=== PATIENT | female | born 1965 | race American Indian/Alaskan Native ===

== ENCOUNTER 2018-12-24 06:52 | Day surgery (SDC) | payer BC ==
[2018-12-24] MEDS: NACL 0.9% 500 ML 500 ML IV SCH ×2 (08:52→09:55)
[2018-12-24] MEDS ORDERED: HEPARIN 10,000 UNITS/10 ML ONE (08:56)
[2018-12-24] MEDS ORDERED: XYLOCAINE 2% INFILTRATI ONE (08:56)
[2018-12-24] MEDS ORDERED: CALAN ONE (08:56)
[2018-12-24] MEDS ORDERED: HEPARIN/NS 5000 UNIT/500ML(CATH LAB) 1,000 ML IR ONE (08:56)
[2018-12-24] MEDS ORDERED: NITROGLYCERIN SYRINGE 3 ML ONE (08:57)
[2018-12-24] MEDS ORDERED: SUBLIMAZE ONE (09:48)
[2018-12-24] MEDS: VERSED ONE ×2 (09:55→10:05)
[2018-12-24] MEDS ORDERED: LOPRESSOR IV ONE (10:08)
--- NOTE | 2018-12-24 10:50 | Short Stay Summary ---
Short Stay Documentation Date of service: 12/24/18 - History H&P: obtained from office - Allergies and Medications Current Medications: Allergies tramadol Allergy (Verified 12/24/18 08:22) Dizziness/VOMITING Home Medications Medication Instructions Recorded Confirmed Last Taken Type Aspirin [Aspirin EC] 81 mg PO QDAY 12/24/18 12/24/18 12/24/18 History 1 tab Losartan/Hydrochlorothiazide 100 mg PO DAILY 12/24/18 12/24/18 12/24/18 History [Losartan-Hctz 100-25 mg Tab] 1 tab Ranexa 500 mg PO BID 12/24/18 12/24/18 Unknown History Active Medications Sodium Chloride (Nacl 0.9% 500 Ml) 500 mls @ 50 mls/hr IV DIRECT FRITZ Stop: 12/24/18 18:59 Last Admin: 12/24/18 09:55 Dose: 50 mls/hr Documented by: - Brief post op/procedure progress note Date of procedure: 12/24/18 Pre-op diagnosis: sob Post-op diagnosis: same Procedure: see report Anesthesia: local Estimated blood loss: none Pathology: none - Disposition Condition at discharge: Good Disposition: [id number] TO HOME OR SELFCARE - Discharge Diagnoses (1) Hypertension Status: Chronic Qualifiers: Hypertension type: essential hypertension Qualified Code(s): I10 - Essential (primary) hypertension (2) SOB (shortness of breath) on exertion Status: Acute (3) Abnormal stress ECG with treadmill Status: Suspected Short Stay Discharge Plan Diet: low fat, low cholesterol, low salt Wound: keep clean and dry Follow up with: RAMA OSORIO DO [Primary Care Provider] - 7 Days
[2018-12-24 12:41] VITALS: BP 130/65
--- NOTE | 2018-12-24 13:04 | Cardiac Catherization Report ---
LEFT HEART CATHETERIZATION CLINICAL INFORMATION: 1. This is a 53-year-old -[place] female with shortness of breath and chest pain with exertion with mildly abnormal treadmill stress test. She is here for a left heart catheterization. She has a history of hypertension. Left heart catheterization done with moderate sedation. Total sedation time was 15 minutes; started at 9:54 a.m., finished at the time of 11 a.m., 1 mg Versed and 50 mcg of fentanyl was given. Left heart catheterization performed via the right radial artery, sterile technique, local anesthesia, 6-Ethiopian radial sheath inserted. 2. Left system engaged with a JL3.5 catheter. Left main is large and long and patent, bifurcates into medium caliber LAD that is patent from proximally and distally. Diagonal 1 and diagonal 2 are small caliber vessel, patent. Circumflex is medium caliber vessel that is patent. OM1 is a medium caliber vessel that is patent and OM2 is a small caliber vessel that is patent and the AV groove, the circ is medium caliber. RCA was engaged with JR4 catheter. There is a large dominant vessel, patent from proximally and distally, bifurcates into small to medium caliber PDA. PDA and PLV are patent. LV gram done in CY and HINDS view shows normal LV function, EF 50-60%. LVEDP of 21 mmHg. LV is 140 mmHg. Aortic is 136/63. No gradient across the aortic valve on pullback. 5-Ethiopian catheter was taken over guidewire. 6-Ethiopian radial sheath was discontinued. Radial band applied. No hematoma, no bleeding. SUMMARY: 1. Left main patent, LAD patent, circ patent. OM1 and OM2 patent, RCA patent, normal coronaries were normal LV function. 2. Continue medical management, risk factor modification. JOB# [id number] PAULO/NTS
== END 2018-12-24 13:13 | disposition home or self-care (01) ==
LOC: CATHLABREC 06:52
PROVIDERS: ATTEND Internal Medicine
DX: R07.9 Chest pain, unspecified (principal); R06.02 Shortness of breath; I10 Essential (primary) hypertension; E66.9 Obesity, unspecified; Z68.29 Body mass index [BMI] 29.0-29.9, adult; Z79.82 Long term (current) use of aspirin; Z79.899 Other long term (current) drug therapy; Z88.8 Allergy status to other drugs, medicaments and biological substances
CPT/HCPCS: 93005; 93010; 93458; 99156; C1894; J1644; J2250; J3010; J7040; Q9967